=== PATIENT | female | born 1960 | race Caucasian/White ===

== ENCOUNTER 2016-08-04 10:44 | Emergency (ER) | payer BC ==
[2016-08-04 11:03] VITALS: O2SAT 97
--- NOTE | 2016-08-04 11:10 | ERPHSYRPT ---
- History of Present Illness Time Seen by Provider: 08/04/16 10:55 Source: patient Exam Limitations: no limitations Physician History: Pt. had remote hx of right(dominant) wrist Fx. 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 Now, she C/O right wrist pain x 1 week. rates as 6/10, worse with palpation and movement. Occurred: last week Method of Injury: unknown, other (repetitive use) Quality: constant, sharpness Severity of Pain-Max: moderate Severity of Pain-Current: moderate Extremities Pain Location: wrist: right Modifying Factors: Improves With: movement Associated Symptoms: none Allergies/Adverse Reactions: celecoxib [From Celebrex] Allergy (Verified 08/04/16 11:03) prednisone Allergy (Verified 08/04/16 11:03) tegaserod [From Zelnorm] Allergy (Verified 08/04/16 11:03) Home Medications: Duloxetine HCl 30 mg [Cymbalta 30 MG Capsule] 90 mg PO HS 10/25/15 [ History] Estrogens,Conjugated [Premarin] 0.625 mg PO DAILY 10/25/15 [History] Hydrocodone Bit/Acetaminophen [[place] 7.5-325 Tablet] 1 each PO Q6HPRN PRN [History] Ibuprofen [IBUPROFEN 400 MG TABLET] 1 - 2 tablet PO DAILY PRN 10/25/15 [History] Losartan Potassium 50 mg [Cozaar 50 MG] 50 mg PO DAILY 10/25/15 [History] Metformin HCl 500 mg [Glucophage 500 MG] 500 mg PO BID 10/25/15 [History] Omeprazole 20 MG [Prilosec 20 mg] 20 mg PO DAILY 10/25/15 [History] Metoprolol Succinate [Toprol Xl] 50 mg PO HS 08/04/16 [History] - Review of Systems Constitutional: No Symptoms Eyes: No Symptoms Ears, Nose, & Throat: No Symptoms Respiratory: No Symptoms Cardiac: No Symptoms Abdominal/Gastrointestinal: No Symptoms Musculoskeletal: Joint Pain, Joint Swelling Skin: No Symptoms Neurological: No Symptoms Psychological: No Symptoms Endocrine: No Symptoms Hematologic/Lymphatic: No Symptoms - Nursing Vital Signs Nursing Vital Signs: Initial Vital Signs Temperature 98.1 F Temperature Source Oral Pulse Rate 82 Respiratory Rate 18 Blood Pressure 220/120 Pain Intensity 7 - Physical Exam General Appearance: mild distress Eyes, Ears, Nose, Throat Exam: normal ENT inspection Neck Exam: normal inspection, non-tender, supple, full range of motion Cardiovascular/Respiratory Exam: chest non-tender, normal breath sounds Abdominal Exam: non-tender, soft Back Exam: normal inspection, normal range of motion Shoulder Exam: normal inspection, non-tender, no evidence of injury, normal ROM Elbow/Forearm Exam: normal inspection, non-tender, no evidence of injury, normal ROM Wrist Exam: limited ROM, soft tissue tenderness, swelling Hand Exam: normal inspection, non-tender, no evidence of injury Neuro/Tendon Exam: normal sensation, normal motor functions, normal tendon functions Mental Status Exam: alert, oriented x 3, cooperative Skin Exam: normal color, warm, dry SpO2 Interpretation: normal SpO2: 97 Oxygen Delivery: Room Air - Course Nursing assessment & vital signs reviewed: Yes - Radiology Exams Wrist X-ray Interpretation: Discussed w/ radiologist, No Fracture (Old distal radial Fx with intact anterior fixation plate/screws and radiocarpal degenerative joint space narrowing. No acute.) Ordered Tests: Active Orders 24 hr Category Date Time Status WRIST (MIN 3 VIEWS) Stat Exams 08/04/16 11:14 Completed Medication Summary Generic Name Dose Route Start Last Admin Trade Name Freq PRN Reason Stop Dose Admin Losartan Potassium 50 mg 08/05/16 11:10 08/04/16 11:16 Cozaar 50 Mg PO 08/05/16 11:11 50 mg STAT ONE Administration - Progress Progress: improved Counseled pt/family regarding: diagnosis, need for follow-up (with PCP 1 week), rad results - Departure Time of Disposition: 11:45 Departure Disposition: Home Clinical Impression: Right wrist sprain Qualifiers: Encounter type: initial encounter Qualified Code(s): S63.501A - Unspecified sprain of right wrist, initial encounter Condition: Stable Critical Care Time: No
--- NOTE | 2016-08-04 11:34 | XRAY ---
Indication: Pain following repetitive twisting. Comparison: None 3 views of the right wrist demonstrates old distal radial fracture with intact anterior fixation plate/screws and radiocarpal degenerative joint space narrowing. No other bony, articular, or soft tissue abnormalities.
[2016-08-04 11:49] VITALS: BP 160/80; PULSE 80
[2016-08-05] MEDS ORDERED: Cozaar 50 MG PO ONE (11:10)
== END 2016-08-04 11:57 | disposition home or self-care (01) ==
LOC: ED 10:44
DX: S63.501A Unspecified sprain of right wrist, initial encounter (principal)
CPT/HCPCS: 73110; 99283; L3908

== ENCOUNTER 2018-06-30 09:32 | Day surgery (SDC) | payer OTHER ==
[2018-06-30] MEDS ORDERED: Marcaine 0.5% SDV 10 ML IJ ONE (09:33)
[2018-06-30] MEDS ORDERED: Depo-Medrol 40 MG/ML IM ONE (09:33)
[2018-06-30] MEDS ORDERED: DIPRIVAN 200 MG/20 ML IV ONE (09:33)
[2018-06-30] MEDS ORDERED: Lactated Ringers 1,000 ML IV ONE (14:51)
--- NOTE | 2018-06-30 16:02 | XRAY ---
35 seconds fluoroscopy time in surgery for bilateral S-I joint injection.
--- NOTE | 2018-07-01 04:23 | XRAY ---
Exam: Bilateral sacroiliac joint therapeutic injection. Findings: 35 seconds of intraoperative fluoroscopy time was utilized. A total of 5 intraoperative C-arm images were obtained in posterior and lateral projections. Posterior needle tips are seen projected over the lower aspect of each sacroiliac joint. Correlate with therapeutic procedure.
== END 2018-06-30 12:15 | disposition home or self-care (01) ==
LOC: SDC-PAIN 09:32
PROVIDERS: ATTEND Psychiatry & Neurology Pain Medicine
DX: M46.1 Sacroiliitis, not elsewhere classified (principal)
CPT/HCPCS: 27096; 72020; 76000; 82962; J1030; J2704; G0260

== ENCOUNTER 2018-11-24 08:00 | Day surgery (SDC) | payer OTHER ==
[2018-11-24] MEDS ORDERED: Depo-Medrol 40 MG/ML IM ONE (08:01)
[2018-11-24] MEDS ORDERED: DIPRIVAN 200 MG/20 ML IV ONE (08:01)
[2018-11-24] MEDS ORDERED: Xylocaine-Mpf 2 ML IJ ONE (08:01)
[2018-11-24] MEDS ORDERED: Xylocaine-Mpf 2% 5 Ml Vial IJ ONE (08:01)
[2018-11-24] MEDS ORDERED: Ketamine HCl 50 MG/ML IV ONE (08:01)
--- NOTE | 2018-11-24 10:51 | XRAY ---
14 seconds fluoroscopy time in surgery for bilateral L4-S1 MBB.
--- NOTE | 2018-11-24 11:02 | XRAY ---
Indication: Bilateral L4-S1 MBB. Intraoperative fluoroscopy was provided for 14 seconds. Single digital spot image submitted for interpretation demonstrates posterior needle tips projecting over the expected course of the left and right L4-S1 nerve roots. Correlate with intraoperative findings/report.
[2018-11-24] MEDS ORDERED: Lactated Ringers 1,000 ML IV ONE (15:36)
== END 2018-11-24 09:52 | disposition home or self-care (01) ==
LOC: SDC-PAIN 08:00
PROVIDERS: ATTEND Psychiatry & Neurology Pain Medicine
DX: M47.817 Spondylosis without myelopathy or radiculopathy, lumbosacral region (principal); E11.9 Type 2 diabetes mellitus without complications; Z79.899 Other long term (current) drug therapy; I10 Essential (primary) hypertension; G47.30 Sleep apnea, unspecified; Z86.73 Personal history of transient ischemic attack (TIA), and cerebral infarction without residual deficits; B15.9 Hepatitis A without hepatic coma; K21.9 Gastro-esophageal reflux disease without esophagitis
CPT/HCPCS: 64493; 64494; 72020; 77002; 82962; J1030; J2704

== ENCOUNTER 2019-01-05 13:42 | Day surgery (SDC) | payer OTHER ==
[2019-01-05] MEDS ORDERED: Xylocaine 1% Vial 30 ML PF IJ ONE (13:43)
[2019-01-05] MEDS ORDERED: Marcaine 0.5% SDV 10 ML IJ ONE (13:43)
[2019-01-05] MEDS ORDERED: Depo-Medrol 40 MG/ML IM ONE (13:43)
--- NOTE | 2019-01-05 15:04 | XRAY ---
Indication: Bilateral SI joint injection. Intraoperative fluoroscopy was provided for 20 seconds. 4 digital spot images submitted for interpretation demonstrates posterior needle tips projecting over the inferior left and right SI joints. Correlate with intraoperative findings/report.
--- NOTE | 2019-01-05 16:33 | XRAY ---
20 seconds of fluoroscopy was used in surgery for bilateral SI joint injections.
== END 2019-01-05 14:51 | disposition home or self-care (01) ==
LOC: SDC-PAIN 13:42
PROVIDERS: ATTEND Psychiatry & Neurology Pain Medicine
DX: M46.1 Sacroiliitis, not elsewhere classified (principal); I10 Essential (primary) hypertension; E11.9 Type 2 diabetes mellitus without complications; G47.30 Sleep apnea, unspecified; G89.29 Other chronic pain; K21.9 Gastro-esophageal reflux disease without esophagitis; F32.9 Major depressive disorder, single episode, unspecified
CPT/HCPCS: 27096; 72202; 77002; 82962; J1030; J2001; G0260

== ENCOUNTER 2019-07-20 14:46 | Day surgery (SDC) | payer MEDICARE ==
[2019-07-20] MEDS ORDERED: Marcaine 0.5% SDV 10 ML IJ ONE (14:47)
[2019-07-20] MEDS ORDERED: Depo-Medrol 40 MG/ML IM ONE (14:47)
[2019-07-20] MEDS ORDERED: Lactated Ringers 1,000 ML IV ONE (16:00)
[2019-07-20] MEDS ORDERED: DIPRIVAN 200 MG/20 ML IV ONE (16:27)
[2019-07-20] MEDS ORDERED: Ketamine HCl 50 MG/ML ONE (16:27)
--- NOTE | 2019-07-20 16:48 | XRAY ---
Indication: Bilateral L4-S1 MBB. Intraoperative fluoroscopy was provided for 8 seconds. Single digital spot image submitted for interpretation demonstrates posterior needle tips projecting over the expected course of the left and right L4-S1 nerve roots. Correlate with intraoperative findings/report.
--- NOTE | 2019-07-20 16:48 | XRAY ---
8 seconds fluoroscopy time in surgery for bilateral L4-S1 MBB.
== END 2019-07-20 16:57 | disposition home or self-care (01) ==
LOC: SDC-PAIN 14:46
PROVIDERS: ATTEND Psychiatry & Neurology Pain Medicine
DX: M47.816 Spondylosis without myelopathy or radiculopathy, lumbar region (principal); E11.9 Type 2 diabetes mellitus without complications; I10 Essential (primary) hypertension; G47.30 Sleep apnea, unspecified; G89.29 Other chronic pain; Z79.899 Other long term (current) drug therapy
CPT/HCPCS: 64493; 64494; 72020; 77002; 82962; J1030; J2704

== ENCOUNTER 2020-01-04 08:14 | Day surgery (SDC) | payer MEDICARE ==
[2020-01-04] MEDS ORDERED: Marcaine 0.5% SDV 10 ML IJ ONE (08:15)
[2020-01-04] MEDS ORDERED: Depo-Medrol 40 MG/ML IM ONE (08:15)
[2020-01-04] MEDS ORDERED: DIPRIVAN 200 MG/20 ML IV ONE (08:31)
[2020-01-04] MEDS ORDERED: Ketamine HCl 50 MG/ML ONE (08:33)
--- NOTE | 2020-01-04 10:47 | XRAY ---
Indication: Bilateral SI joint injection. Intraoperative fluoroscopy was provided for 18 seconds. 4 digital spot images submitted for interpretation demonstrates posterior needle tip projecting over the inferior left and right SI joint. Correlate with intraoperative findings/report.
--- NOTE | 2020-01-04 11:13 | XRAY ---
18 seconds fluoroscopy time in surgery for bilateral SIO joint injections.
[2020-01-04] MEDS ORDERED: Lactated Ringers 1,000 ML IV ONE (12:34)
== END 2020-01-04 09:33 | disposition home or self-care (01) ==
LOC: SDC-PAIN 08:14
PROVIDERS: ATTEND Psychiatry & Neurology Pain Medicine
DX: M46.1 Sacroiliitis, not elsewhere classified (principal); E11.9 Type 2 diabetes mellitus without complications; I10 Essential (primary) hypertension; G47.30 Sleep apnea, unspecified; Z86.73 Personal history of transient ischemic attack (TIA), and cerebral infarction without residual deficits; G89.29 Other chronic pain; Z79.899 Other long term (current) drug therapy
CPT/HCPCS: 72202; 77002; 82962; G0260; 27096; J1030; J2704

== ENCOUNTER 2020-02-15 08:53 | Day surgery (SDC) | payer MEDICARE ==
[2020-02-15] MEDS ORDERED: Marcaine 0.5% SDV 10 ML IJ ONE (08:54)
[2020-02-15] MEDS ORDERED: Ketamine HCl 50 MG/ML ONE (09:41)
[2020-02-15] MEDS ORDERED: DIPRIVAN 200 MG/20 ML IV ONE (09:41)
--- NOTE | 2020-02-15 11:29 | XRAY ---
Indication: Right knee geniculate nerve block. Intraoperative fluoroscopy was provided for 11 seconds. 2 digital spot images of the right knee submitted for interpretation demonstrates anterior needle tips projecting medial/lateral supracondylar and medial tibial plateau. Correlate with intraoperative findings/report.
--- NOTE | 2020-02-15 11:51 | XRAY ---
11 seconds fluoroscopy time in surgery for right genicular nerve block.
[2020-02-15] MEDS ORDERED: Lactated Ringers 1,000 ML IV ONE (15:48)
== END 2020-02-15 10:07 | disposition home or self-care (01) ==
LOC: SDC-PAIN 08:53
PROVIDERS: ATTEND Psychiatry & Neurology Pain Medicine
DX: M25.562 Pain in left knee (principal); E11.9 Type 2 diabetes mellitus without complications; I10 Essential (primary) hypertension; G47.30 Sleep apnea, unspecified; G89.29 Other chronic pain; Z86.73 Personal history of transient ischemic attack (TIA), and cerebral infarction without residual deficits; F41.8 Other specified anxiety disorders; Z79.899 Other long term (current) drug therapy
CPT/HCPCS: 64454; 73560; 77002; 82962; J2704

== ENCOUNTER 2020-04-04 09:20 | Day surgery (SDC) | payer MEDICARE ==
[2020-04-04] MEDS ORDERED: BUPIVACAINE 0.5% VIAL IJ ONE (09:21)
[2020-04-04] MEDS ORDERED: Xylocaine 1% Vial 30 ML PF IJ ONE (09:21)
[2020-04-04] MEDS ORDERED: Depo-Medrol 40 MG/ML IM ONE (09:21)
[2020-04-04] MEDS ORDERED: DIPRIVAN 200 MG/20 ML IV ONE (11:09)
[2020-04-04] MEDS ORDERED: Ketamine HCl 50 MG/ML ONE (11:09)
--- NOTE | 2020-04-04 12:25 | XRAY ---
17 seconds fluoroscopy time in surgery for right genicular nerve ablation.
--- NOTE | 2020-04-04 12:25 | XRAY ---
Indication: Right knee genicular nerve ablation. Intraoperative fluoroscopy was provided for 17 seconds. 2 digital spot images of the right knee submitted for interpretation demonstrates anterior needle tips projecting medial/lateral supracondylar and medial tibial plateau. Correlate with intraoperative findings/report.
[2020-04-04] MEDS ORDERED: Lactated Ringers 1,000 ML IV ONE (15:30)
== END 2020-04-04 11:45 | disposition home or self-care (01) ==
LOC: SDC-PAIN 09:20
PROVIDERS: ATTEND Psychiatry & Neurology Pain Medicine
DX: M17.11 Unilateral primary osteoarthritis, right knee (principal); E11.9 Type 2 diabetes mellitus without complications; I10 Essential (primary) hypertension; G47.30 Sleep apnea, unspecified; Z86.73 Personal history of transient ischemic attack (TIA), and cerebral infarction without residual deficits; Z79.899 Other long term (current) drug therapy
CPT/HCPCS: 64624; 73560; 77002; 82962; J1030; J2001; J2704

== ENCOUNTER 2020-07-04 07:46 | Day surgery (SDC) | payer MEDICARE ==
[2020-07-04] MEDS ORDERED: Depo-Medrol 40 MG/ML IM ONE (07:47)
[2020-07-04] MEDS ORDERED: BUPIVACAINE 0.5% VIAL IJ ONE (07:47)
[2020-07-04] MEDS ORDERED: Ketamine HCl 50 MG/ML ONE (09:51)
[2020-07-04] MEDS ORDERED: DIPRIVAN 200 MG/20 ML IV ONE (09:51)
--- NOTE | 2020-07-04 10:34 | XRAY ---
Indication: Bilateral L4-S1 MBB. Intraoperative fluoroscopy was provided for 16 seconds. Single digital spot image submitted for interpretation demonstrates posterior needle tips projecting over the expected left and right L4-S1 nerve roots. Correlate with intraoperative findings/report.
--- NOTE | 2020-07-04 10:38 | XRAY ---
16 seconds fluoroscopy time in surgery for bilateral L4-S1 MBB.
[2020-07-04] MEDS ORDERED: Lactated Ringers 1,000 ML IV ONE (16:05)
== END 2020-07-04 10:19 | disposition home or self-care (01) ==
LOC: SDC-PAIN 07:46
PROVIDERS: ATTEND Psychiatry & Neurology Pain Medicine
DX: M47.816 Spondylosis without myelopathy or radiculopathy, lumbar region (principal); I10 Essential (primary) hypertension; E11.9 Type 2 diabetes mellitus without complications; G47.30 Sleep apnea, unspecified; Z86.73 Personal history of transient ischemic attack (TIA), and cerebral infarction without residual deficits; Z79.899 Other long term (current) drug therapy
CPT/HCPCS: 64493; 64494; 72020; 77002; 82947; 82962; J1030; J2704

== ENCOUNTER 2020-12-19 08:30 | Day surgery (SDC) | payer MEDICARE ==
[2020-12-19] MEDS ORDERED: Depo-Medrol 40 MG/ML IM ONE (08:31)
[2020-12-19] MEDS ORDERED: BUPIVACAINE 0.5% VIAL IJ ONE (08:31)
[2020-12-19] MEDS ORDERED: DIPRIVAN 200 MG/20 ML IV ONE (09:37)
--- NOTE | 2020-12-19 11:01 | XRAY ---
15 seconds fluoroscopy time in surgery for bilateral SI joint injections.
--- NOTE | 2020-12-19 11:10 | XRAY ---
Indication: Bilateral SI joint injection. Intraoperative fluoroscopy provided for 15 seconds. 4 digital spot images submitted for interpretation demonstrates posterior needle tip projecting over the inferior left and right SI joint. Correlate with intraoperative findings/report.
[2020-12-19] MEDS ORDERED: Lactated Ringers 1,000 ML IV ONE (15:27)
== END 2020-12-19 10:02 | disposition home or self-care (01) ==
LOC: SDC-PAIN 08:30
PROVIDERS: ATTEND Psychiatry & Neurology Pain Medicine
DX: M46.1 Sacroiliitis, not elsewhere classified (principal); I10 Essential (primary) hypertension; E11.9 Type 2 diabetes mellitus without complications; G47.30 Sleep apnea, unspecified; Z79.899 Other long term (current) drug therapy
CPT/HCPCS: 27096; 72202; 77002; 82947; J1030; J2704; G0260

== ENCOUNTER 2021-02-20 18:03 | Day surgery (SDC) | payer MEDICARE ==
[2021-02-20] MEDS ORDERED: Xylocaine 1% Vial 30 ML PF IJ ONE (18:04)
[2021-02-20] MEDS ORDERED: Depo-Medrol 40 MG/ML IM ONE (18:04)
[2021-02-20] MEDS ORDERED: BUPIVACAINE 0.5% VIAL IJ ONE (18:04)
--- NOTE | 2021-02-20 20:28 | XRAY ---
Indication: Bilateral greater trochanter bursa injections. Intraoperative fluoroscopy provided for 23 seconds. 2 digital spot image submitted for interpretation demonstrates needle tip projecting just lateral to the left and right greater trochanters. Small amount of contrast injected for both needle tip placement. Correlate with intraoperative findings/report.
--- NOTE | 2021-02-21 08:33 | XRAY ---
23 seconds fluoroscopy time in surgery for injections of the greater trochanters of both hips.
== END 2021-02-20 19:50 | disposition home or self-care (01) ==
LOC: SDC-PAIN 18:03
PROVIDERS: ATTEND Psychiatry & Neurology Pain Medicine
DX: M70.62 Trochanteric bursitis, left hip (principal); M70.61 Trochanteric bursitis, right hip; E11.9 Type 2 diabetes mellitus without complications; Z79.899 Other long term (current) drug therapy
CPT/HCPCS: 20610; 73521; 77002; 82947; J1030; J2001; Q9966

== ENCOUNTER 2021-06-05 08:58 | Day surgery (SDC) | payer MEDICARE ==
[2021-06-05] MEDS ORDERED: BUPIVACAINE 0.5% VIAL IJ ONE (08:59)
[2021-06-05] MEDS ORDERED: Depo-Medrol 40 MG/ML IM ONE (08:59)
[2021-06-05] MEDS ORDERED: Versed 2 MG/2 ML Injection ONE (09:58)
[2021-06-05] MEDS ORDERED: SUBLIMAZE 100 MCG/2 ML ONE (10:19)
[2021-06-05] MEDS ORDERED: DIPRIVAN 200 MG/20 ML IV ONE (10:40)
--- NOTE | 2021-06-05 12:23 | XRAY ---
23 seconds of fluoroscopy was used in surgery for a bilateral SI joint injections.
[2021-06-05] MEDS ORDERED: Lactated Ringers 1,000 ML IV ONE (12:27)
--- NOTE | 2021-06-05 12:33 | XRAY ---
Indication: Bilateral SI joint injection. Intraoperative fluoroscopy provided for 23 seconds. 4 digital spot images submitted for interpretation demonstrates posterior needle tip projecting over the inferior left and right SI joint. Correlate with intraoperative findings/report.
== END 2021-06-05 11:08 | disposition home or self-care (01) ==
LOC: SDC-PAIN 08:58
PROVIDERS: ATTEND Psychiatry & Neurology Pain Medicine
DX: M46.1 Sacroiliitis, not elsewhere classified (principal); E11.9 Type 2 diabetes mellitus without complications; Z79.899 Other long term (current) drug therapy
CPT/HCPCS: 27096; 72202; 77002; 82947; G0260; J1030; J2250; J2704; J3010

== ENCOUNTER 2021-07-10 07:49 | Day surgery (SDC) | payer MEDICARE ==
[2021-07-10] MEDS ORDERED: Depo-Medrol 40 MG/ML IM ONE (07:50)
[2021-07-10] MEDS ORDERED: Xylocaine 1% Vial 30 ML PF IJ ONE (07:50)
[2021-07-10] MEDS ORDERED: BUPIVACAINE 0.5% VIAL IJ ONE (07:50)
[2021-07-10] MEDS ORDERED: Versed 2 MG/2 ML Injection ONE (08:35)
[2021-07-10] MEDS ORDERED: Lactated Ringers 1,000 ML IV ONE (08:53)
[2021-07-10] MEDS ORDERED: DIPRIVAN 200 MG/20 ML IV ONE (09:15)
--- NOTE | 2021-07-10 10:47 | XRAY ---
Indication: Bilateral hip injection. Intraoperative fluoroscopy provided for 1 minute 10 seconds. 2 digital spot image submitted for interpretation demonstrates needle tip projecting just lateral to the left and right femur necks. Small amount of contrast injected for both needle tip placement. Correlate with intraoperative findings/report.
--- NOTE | 2021-07-10 12:22 | XRAY ---
1 minute and 10 seconds fluoroscopy time in surgery for injections of both intra-articular joint spaces of both hips.
== END 2021-07-10 09:49 | disposition home or self-care (01) ==
LOC: SDC-PAIN 07:49
PROVIDERS: ATTEND Psychiatry & Neurology Pain Medicine
DX: M16.0 Bilateral primary osteoarthritis of hip (principal); E11.9 Type 2 diabetes mellitus without complications; I10 Essential (primary) hypertension; Z79.899 Other long term (current) drug therapy
CPT/HCPCS: 20610; 73521; 77002; 82947; J1030; J2001; J2250; J2704; Q9966

== ENCOUNTER 2021-08-14 08:03 | Day surgery (SDC) | payer MEDICARE ==
[~2021-08-14 08:03] MED LIST: DIPRIVAN 200 MG/20 ML IV ONE
[2021-08-14] MEDS ORDERED: Xylocaine 1% Vial 30 ML PF IJ ONE (08:04)
[2021-08-14] MEDS ORDERED: Depo-Medrol 40 MG/ML IM ONE (08:04)
[2021-08-14] MEDS ORDERED: Sodium Chloride 0.9% 10 ML FLUSH Syringe IJ ONE (08:04)
[2021-08-14] MEDS ORDERED: DIPRIVAN 200 MG/20 ML IV ONE (09:38)
[2021-08-14] MEDS ORDERED: Lactated Ringers 1,000 ML IV ONE (10:02)
--- NOTE | 2021-08-14 11:07 | XRAY ---
Indication: Lumbar HOMER. Intraoperative fluoroscopy provided for 20 seconds. Single lateral digital spot image submitted for interpretation demonstrates posterior needle tip projecting posterior to L4-L5 interspace. Small amount of contrast injected for needle tip placement. Correlate with intraoperative findings/report.
--- NOTE | 2021-08-14 12:13 | XRAY ---
20 seconds of fluoroscopy was used in surgery for a lumbar HOMER.
== END 2021-08-14 10:05 | disposition home or self-care (01) ==
LOC: SDC-PAIN 08:03
PROVIDERS: ATTEND Psychiatry & Neurology Pain Medicine
DX: M54.16 Radiculopathy, lumbar region (principal); I10 Essential (primary) hypertension; Z79.899 Other long term (current) drug therapy
CPT/HCPCS: 62323; 72100; 77003; 82947; J1030; J2001; J2704; Q9966

== ENCOUNTER 2022-03-19 08:14 | Day surgery (SDC) | payer MEDICARE ==
[2022-03-19] MEDS ORDERED: Depo-Medrol 40 MG/ML IM ONE (08:15)
[2022-03-19] MEDS ORDERED: XYLOCAINE-MPF 1% 5ML SDV IJ ONE (08:15)
[2022-03-19] MEDS ORDERED: Marcaine Mpf 0.5% Vial 30 Ml IJ ONE (08:15)
[2022-03-19] MEDS ORDERED: Versed 2 MG/2 ML Injection ONE (09:05)
[2022-03-19] MEDS ORDERED: Lactated Ringers 1,000 ML IV ONE (10:16)
--- NOTE | 2022-03-19 14:00 | XRAY ---
Indication: Right L4-S1 RFA. Intraoperative fluoroscopy provided for 24 seconds. 3 digital spot image submitted for interpretation demonstrates posterior needle tips projecting over the expected right L4-S1 nerve roots. Correlate with intraoperative findings/report.
--- NOTE | 2022-03-19 16:47 | XRAY ---
24 seconds fluoroscopy time in surgery for right L4-S1 RFA.
== END 2022-03-19 10:15 | disposition home or self-care (01) ==
LOC: SDC-PAIN 08:14
PROVIDERS: ATTEND Psychiatry & Neurology Pain Medicine
DX: M47.816 Spondylosis without myelopathy or radiculopathy, lumbar region (principal); E11.9 Type 2 diabetes mellitus without complications; Z79.899 Other long term (current) drug therapy
CPT/HCPCS: 64635; 64636; 72100; 77002; 82947; J1030; J2250

== ENCOUNTER 2022-04-30 07:56 | Day surgery (SDC) | payer MEDICARE ==
[2022-04-30] MEDS ORDERED: Depo-Medrol 40 MG/ML IM ONE (07:57)
[2022-04-30] MEDS ORDERED: Sodium Chloride 0.9(Preservative Free) 10 ML IJ ONE (07:57)
[2022-04-30] MEDS ORDERED: DIPRIVAN 200 MG/20 ML IV ONE (09:20)
[2022-04-30] MEDS ORDERED: Lactated Ringers 1,000 ML IV ONE (10:11)
--- NOTE | 2022-04-30 19:22 | XRAY ---
Indication: Right L3-L5 transforaminal HOMER. Intraoperative fluoroscopy provided for 1 minute 2 seconds. 5 digital spot image submitted for interpretation demonstrates posterior needle tips projecting over the expected right L3 and L4 nerve roots. Small amount of contrast injected for needle tip placement. Correlate with intraoperative findings/report.
--- NOTE | 2022-04-30 19:33 | XRAY ---
One minute and 2 seconds of fluoroscopy was used in surgery for a right L3-L5 transforaminal HOMER.
== END 2022-04-30 09:55 | disposition home or self-care (01) ==
LOC: SDC-PAIN 07:56
PROVIDERS: ATTEND Psychiatry & Neurology Pain Medicine
DX: M54.16 Radiculopathy, lumbar region (principal); E11.9 Type 2 diabetes mellitus without complications; Z79.899 Other long term (current) drug therapy
CPT/HCPCS: 64483; 64484; 72100; 77003; 82947; J1030; J2704; Q9966

== ENCOUNTER 2022-07-09 08:30 | Day surgery (SDC) | payer MEDICARE ==
[2022-07-09] MEDS ORDERED: BUPIVACAINE 0.5% VIAL IJ ONE (08:31)
[2022-07-09] MEDS ORDERED: Depo-Medrol 40 MG/ML IM ONE (08:31)
[2022-07-09] MEDS ORDERED: XYLOCAINE-MPF 1% 5ML SDV IJ ONE (08:31)
[2022-07-09] MEDS ORDERED: Versed 2 MG/2 ML Injection ONE (09:34)
[2022-07-09] MEDS ORDERED: DIPRIVAN 200 MG/20 ML IV ONE (10:00)
[2022-07-09] MEDS ORDERED: Lactated Ringers 1,000 ML IV ONE (10:51)
--- NOTE | 2022-07-09 11:04 | XRAY ---
Indication: Left L4-S1 RFA. Intraoperative fluoroscopy provided for 26 seconds. 3 digital spot image submitted for interpretation demonstrates posterior needle tips projecting over the expected left L4-S1 nerve roots. Correlate with intraoperative findings/report.
--- NOTE | 2022-07-09 11:58 | XRAY ---
26 seconds of fluoroscopy was used in surgery for a left L4-S1 RFA.
== END 2022-07-09 10:32 | disposition home or self-care (01) ==
LOC: SDC-PAIN 08:30
PROVIDERS: ATTEND Psychiatry & Neurology Pain Medicine
DX: M47.816 Spondylosis without myelopathy or radiculopathy, lumbar region (principal); E11.9 Type 2 diabetes mellitus without complications; Z79.899 Other long term (current) drug therapy
CPT/HCPCS: 64635; 64636; 72100; 77002; 82947; J1030; J2250; J2704

== ENCOUNTER 2022-08-20 08:50 | Day surgery (SDC) | payer MEDICARE ==
[2022-08-20] MEDS ORDERED: LIDOCAINE HCL 1% 50 MG/5 ML VL PF IJ ONE (08:51)
[2022-08-20] MEDS ORDERED: Decadron 4 MG INJ IV ONE (08:51)
[2022-08-20] MEDS ORDERED: BUPIVACAINE 0.5% VIAL IJ ONE (08:51)
[2022-08-20] MEDS ORDERED: Depo-Medrol 40 MG/ML IM ONE (08:51)
[2022-08-20 08:58] LABS: POCT GLUCOSE 134 mg/dL (74 to 106)
[2022-08-20] MEDS ORDERED: Versed 2 MG/2 ML Injection ONE (09:22)
[2022-08-20] MEDS ORDERED: DIPRIVAN 200 MG/20 ML IV ONE (10:09)
--- NOTE | 2022-08-20 11:41 | XRAY ---
Indication: Right SI joint and right piriformis injection. Intraoperative fluoroscopy provided for 22 seconds. 4 digital spot image submitted for interpretation demonstrates posterior needle tip projecting over the right SI joint. Second needle tip projects over the right piriformis muscle with small amount of contrast injected for needle tip placement. Correlate with intraoperative findings/report.
--- NOTE | 2022-08-20 11:47 | XRAY ---
22 seconds of fluoroscopy was used in surgery for a right sacroiliac joint and right piriformis injection.
[2022-08-20] MEDS ORDERED: Lactated Ringers 1,000 ML IV ONE (13:24)
== END 2022-08-20 10:38 | disposition home or self-care (01) ==
LOC: SDC-PAIN 08:50
PROVIDERS: ATTEND Psychiatry & Neurology Pain Medicine
DX: M46.1 Sacroiliitis, not elsewhere classified (principal); M79.18 Myalgia, other site; E11.9 Type 2 diabetes mellitus without complications; Z79.899 Other long term (current) drug therapy
CPT/HCPCS: 20552; 27096; 72170; 77002; 82947; J1030; J1100; J2001; J2250; J2704; Q9966; G0260

== ENCOUNTER 2022-10-01 10:51 | Day surgery (SDC) | payer MEDICARE ==
[2022-10-01] MEDS ORDERED: Depo-Medrol 40 MG/ML IM ONE (10:52)
[2022-10-01] MEDS ORDERED: LIDOCAINE HCL 1% 50 MG/5 ML VL PF IJ ONE (10:52)
[2022-10-01] MEDS ORDERED: BUPIVACAINE 0.5% VIAL IJ ONE (10:52)
[2022-10-01] MEDS ORDERED: DIPRIVAN 200 MG/20 ML IV ONE ×2 (12:50→13:01)
[2022-10-01] MEDS ORDERED: Lactated Ringers 1,000 ML IV ONE (14:27)
--- NOTE | 2022-10-01 16:52 | XRAY ---
Indication: Right SI joint RFA. Intraoperative fluoroscopy provided for 23 seconds. 4 digital spot image submitted for interpretation demonstrates 4 posterior needle tips projecting medial to the right SI joint. Correlate with intraoperative findings/report.
--- NOTE | 2022-10-02 08:39 | XRAY ---
23 seconds of fluoroscopy was used in surgery for a right sacroiliac joint injection.
== END 2022-10-01 13:25 | disposition home or self-care (01) ==
LOC: SDC-PAIN 10:51
PROVIDERS: ATTEND Psychiatry & Neurology Pain Medicine
DX: M47.816 Spondylosis without myelopathy or radiculopathy, lumbar region (principal); Z79.899 Other long term (current) drug therapy
CPT/HCPCS: 64625; 72170; 77002; 82947; J1030; J2001; J2704

== ENCOUNTER 2023-01-14 07:52 | Day surgery (SDC) | payer MEDICARE ==
[2023-01-14] MEDS ORDERED: Depo-Medrol 40 MG/ML IM ONE (07:53)
[2023-01-14] MEDS ORDERED: LIDOCAINE HCL 1% 50 MG/5 ML VL PF IJ ONE (07:53)
[2023-01-14] MEDS ORDERED: Sodium Chloride 0.9(Preservative Free) 10 ML IJ ONE (07:53)
[2023-01-14] MEDS ORDERED: TRANDATE 100 MG/20 ML MDV FOR DRIP IV ONE (07:53)
[2023-01-14] MEDS ORDERED: DIPRIVAN 200 MG/20 ML IV ONE (09:44)
[2023-01-14] MEDS ORDERED: Xylocaine-Mpf 2% 5 Ml Vial ONE (10:13)
--- NOTE | 2023-01-14 11:46 | XRAY ---
Indication: Lumbar HOMER. Intraoperative fluoroscopy provided for 16 seconds. 2 digital spot image submitted for interpretation demonstrates posterior needle tip projecting posterior to lumbosacral junction interspace. Small amount of contrast injected for needle tip placement. Correlate with intraoperative findings/report.
--- NOTE | 2023-01-14 13:36 | XRAY ---
16 seconds of fluoroscopy was used in surgery for a lumbar HOMER.
[2023-01-14] MEDS ORDERED: Lactated Ringers 1,000 ML IV ONE (13:53)
== END 2023-01-14 11:05 | disposition home or self-care (01) ==
LOC: SDC-PAIN 07:52
PROVIDERS: ATTEND Psychiatry & Neurology Pain Medicine
DX: M54.16 Radiculopathy, lumbar region (principal); E11.9 Type 2 diabetes mellitus without complications; Z79.899 Other long term (current) drug therapy
CPT/HCPCS: 62323; 72100; 77003; 82947; J1030; J2001; J2704; Q9966

== ENCOUNTER 2023-04-01 06:53 | Day surgery (SDC) | payer MEDICARE | END 2023-04-01 07:10 | disposition home or self-care (01) | LOC: SDC-PAIN 06:53 | PROVIDERS: ATTEND Psychiatry & Neurology Pain Medicine | DX: Z53.8 Procedure and treatment not carried out for other reasons (principal); E11.9 Type 2 diabetes mellitus without complications | CPT/HCPCS: 82947 ==

== ENCOUNTER 2023-07-08 08:55 | Emergency (ER) | payer MEDICARE ==
[~2023-07-08 08:55] MED LIST changes: -BUPIVACAINE 0.5% VIAL IJ ONE; -DIPRIVAN 200 MG/20 ML IV ONE; -Depo-Medrol 40 MG/ML IM ONE; -Lactated Ringers 1,000 ML IV ONE; +TRANDATE 20 MG/4 ML SYRINGE IV ONE; -XYLOCAINE-MPF 1% 5ML SDV IJ ONE
--- NOTE | 2023-07-08 08:59 | ERPHSYRPT ---
- History of Present Illness Time Seen by Provider: 07/08/23 08:59 Source: patient Exam Limitations: no limitations Physician History: This is an obese 63-year-old white female patient who was at the pain clinic and about to receive an injection to help relieve her bilateral hip pain. She was found to have significantly elevated blood pressure. Dr. Garcia ordered the patient to have labetalol intravenously prior to her arriving to the emergency department. Patient has a history of hypertension, obesity, gastroesophageal reflux disease, chronic pain issues, fibromyalgia and diabetes. Patient ordinarily takes her blood pressure medication of losartan and metoprolol in the evenings. At 530 this morning patient did take her hydrocodone pain medicine. Other than the pain in her hips, patient was asymptomatic. She does not have a headache. She has no chest pain. She is not short of breath. She had no visual changes. Patient's initial blood pressure reading on arrival to the emergency department shows a blood pressure of 230/108. Repeat, second blood pressure reading was 162/104 Timing/Duration: today Severity: mild Associated Symptoms: denies symptoms Allergies/Adverse Reactions: celecoxib [From Celebrex] Allergy (Verified 07/08/23 09:05) prednisone Allergy (Verified 07/08/23 09:05) tegaserod [From Zelnorm] Allergy (Verified 07/08/23 09:05) Home Medications: Duloxetine HCl [Cymbalta] 1 cap PO HS 07/08/23 [History] Gabapentin [Neurontin ] 1 cap PO HS 07/08/23 [History] Losartan Potassium [Cozaar] 1 tab PO HS 07/08/23 [History] Metoprolol Succinate 100 mg [Toprol Xl 100 MG] 1 tab PO HS 07/08/23 [History] Oxycodone HCl/Acetaminophen [Oxycodone-Acetaminophen 5-325] 1 tab PO TID PRN 07/08/23 [History] Semaglutide [Ozempic] 1 mg SQ WEEKLY 07/08/23 [History] Hx Tetanus, Diphtheria Vaccination/Date Given: Yes (up to date) Hx Influenza Vaccination/Date Given: Yes Hx Pneumococcal Vaccination/Date Given: No Travel Risk - International Travel Have you traveled outside of the country in past 3 weeks: No - Coronavirus Screening Are you exhibiting any of the following symptoms?: No Close contact with a COVID-19 positive Pt in past 14-21 Days: No - Review of Systems Constitutional: No Symptoms Eyes: No Symptoms Ears, Nose, & Throat: No Symptoms Respiratory: No Symptoms Cardiac: No Symptoms Abdominal/Gastrointestinal: No Symptoms Genitourinary Symptoms: No Symptoms Musculoskeletal: Joint Pain (Chronic bilateral hip pain) Skin: No Symptoms Neurological: No Symptoms Psychological: No Symptoms Endocrine: No Symptoms Hematologic/Lymphatic: No Symptoms Immunological/Allergic: No Symptoms All Other Systems: Reviewed and Negative - Past Medical History Pertinent Past Medical History: Yes Cardiac History: Hypertension Endocrine Medical History: Diabetes Type II Musculoskeletal History: Fibromyalgia - Past Surgical History Past Surgical History: Yes Gastrointestinal: Cholecystectomy Musculoskeletal: Orthopedic Surgery Female Surgical History: Hysterectomy, Section Other Surgical History: bladder - Social History Smoking Status: Current every day smoker How long have you smoked: 40 Exposure to second hand smoke: No Drug Use: none Patient Lives Alone: No - Nursing Vital Signs Nursing Vital Signs: Initial Vital Signs Temperature 97.6 F 07/08/23 08:55 Pulse Rate 70 07/08/23 08:55 Respiratory Rate 16 07/08/23 08:55 Blood Pressure 230/108 07/08/23 08:55 O2 Sat by Pulse Oximetry 95 07/08/23 08:55 Pain Scale Pain Intensity 8 - Course Nursing assessment & vital signs reviewed: Yes EKG Interpreted by Me: RATE (69), NORMAL AXIS, NORMAL QRS, NORMAL ST-T, Other (No acute ischemic changes on today's twelve-lead EKG. There is borderline prolonged OH interval.) Ordered Tests: Active Orders 24 hr Category Date Time Status [employer] STAT Care 07/08/23 09:15 Active EKG-ER Only STAT Care 07/08/23 09:15 Active IV Insertion STAT Care 07/08/23 09:15 Active NPO (ED) STAT Care 07/08/23 09:15 Active Pulse Oximetry (ED) STAT Care 07/08/23 09:15 Active HEAD WITHOUT CONTRAST [CT] Stat Exams 07/08/23 09:22 Completed CBC W DIFF Stat Lab 07/08/23 09:31 Completed CMP Stat Lab 07/08/23 09:31 Completed POCT GLUCOSE Stat Lab 07/08/23 06:49 Completed UA W/RFX UR CULTURE Stat Lab 07/08/23 10:49 Completed Medication Summary Discontinued Medications Generic Name Dose Route Start Last Admin Trade Name Freq PRN Reason Stop Dose Admin Hydromorphone HCl 0.5 mg 07/08/23 09:15 07/08/23 09:26 Hydromorphone 1 Mg/1ml Inj IV 07/08/23 09:16 0.5 mg STAT ONE Administration Hydromorphone HCl Confirm 07/08/23 09:20 Hydromorphone 1 Mg/1ml Inj Administered 07/08/23 09:21 Dose 1 mg .ROUTE .STK-MED ONE Hydromorphone HCl 0.5 mg 07/08/23 10:54 07/08/23 11:02 Hydromorphone 1 Mg/1ml Inj IV 07/08/23 10:55 0.5 mg STAT ONE Administration Hydromorphone HCl Confirm 07/08/23 11:00 Hydromorphone 1 Mg/1ml Inj Administered 07/08/23 11:01 Dose 1 mg .ROUTE .STK-MED ONE Labetalol HCl 5 mg 07/08/23 07:30 07/08/23 09:14 Labetalol Hcl 20 Mg/4 Ml Disp.Syringe IV 07/08/23 07:31 Not Given NOW ONE Labetalol HCl 5 mg 07/08/23 10:53 07/08/23 11:03 Labetalol Hcl 20 Mg/4 Ml Disp.Syringe IV 07/08/23 10:54 5 mg STAT ONE Administration Labetalol HCl Confirm 07/08/23 11:01 Labetalol Hcl 20 Mg/4 Ml Disp.Syringe Administered 07/08/23 11:02 Dose 20 mg IV .STK-MED ONE Ondansetron HCl 4 mg 07/08/23 09:15 07/08/23 09:23 Ondansetron Hcl 4 Mg/2 Ml Vial IV 07/08/23 09:16 4 mg STAT ONE Administration Ondansetron HCl Confirm 07/08/23 09:19 Ondansetron Hcl 4 Mg/2 Ml Vial Administered 07/08/23 09:20 Dose 4 mg .ROUTE .STK-MED ONE Lab/Rad Data: Laboratory Result Diagrams 07/08/23 09:31 07/08/23 09:31 Laboratory Results 07/08/23 07/08/23 07/08/23 Range/Units 10:49 09:31 09:31 WBC 8.1 (4.0-10.5) x10^3/uL RBC 4.89 (4.1-5.4) x10^6/uL Hgb 15.2 (12.0-16.0) g/dL Hct 44.5 (35-47) % MCV 91.0 (78-100) fL MCH 31.1 (26-32) pg MCHC 34.2 (32-36) g/dL RDW 12.3 (11.5-14.0) % Plt Count 233 (150-450) x10^3/uL MPV 10.4 (7.5-11.0) fL Gran % 53.0 (36.0-66.0) % Immature Gran % (Auto) 0.2 (0.00-0.4) % Nucleat RBC Rel Count 0.0 (0.00-0.1) % Eos # (Auto) 0.42 (0-0.5) x10^3/uL Immature Gran # (Auto) 0.02 (0.00-0.03) x10^3u/L Absolute Lymphs (auto) 2.80 (1.0-4.6) x10^3/uL Absolute Monos (auto) 0.48 (0.0-1.3) x10^3/uL Absolute Nucleated RBC 0.00 (0.00-0.01) x10^3u/L Lymphocytes % 34.7 (24.0-44.0) % Monocytes % 6.0 (0.0-12.0) % Eosinophils % 5.2 H (0.00-5.0) % Basophils % 0.9 (0.0-0.4) % Absolute Granulocytes 4.27 (1.4-6.9) x10^3/uL Basophils # 0.07 (0-0.4) x10^3/uL Sodium 135 L (137-145) mmol/L Potassium 3.7 (3.5-5.1) mmol/L Chloride 106 (98-107) mmol/L Carbon Dioxide 19 L (22-30) mmol/L Anion Gap 14.0 (5-15) MEQ/L BUN 13 (7-17) mg/dL Creatinine 0.59 (0.52-1.04) mg/dL Estimated GFR 101.2 ML/MIN Glucose 157 H (74-106) mg/dL POC Glucometer (74 to 106) mg/dL Calcium 9.1 (8.4-10.2) mg/dL Total Bilirubin 0.90 (0.2-1.3) mg/dL AST 34 (14-36) U/L ALT 38 H (0-35) U/L Alkaline Phosphatase 94 (38-126) U/L Serum Total Protein 7.0 (6.3-8.2) g/dL Albumin 3.9 (3.5-5.0) g/dL Urine Color Yellow (Yellow) Urine Appearance Cloudy A (Clear) Urine pH 5.5 (4.6-8.0) Ur Specific [place] 1.025 (1.005-1.030) Urine Protein Trace A (Negative) Urine Glucose (UA) Negative (Negative) mg/dL Urine Ketones Negative (Negative) Urine Blood Negative (Negative) Urine Nitrite Negative (Negative) Urine Bilirubin Negative (Negative) Urine Urobilinogen 0.2 (0.2) mg/dL Ur Leukocyte Esterase Negative (Negative) U Hyaline Cast (Auto) NONE SEEN (0-2) /LPF Urine Microscopic RBC 0-2 (0-5) /HPF Urine Microscopic WBC 0-2 (0-5) /HPF Ur Epithelial Cells Few (None Seen) /HPF Urine Bacteria None Seen (None Seen) /HPF Urine Culture Reflexed NO (NO) 07/08/23 Range/Units 06:49 WBC (4.0-10.5) x10^3/uL RBC (4.1-5.4) x10^6/uL Hgb (12.0-16.0) g/dL Hct (35-47) % MCV (78-100) fL MCH (26-32) pg MCHC (32-36) g/dL RDW (11.5-14.0) % Plt Count (150-450) x10^3/uL MPV (7.5-11.0) fL Gran % (36.0-66.0) % Immature Gran % (Auto) (0.00-0.4) % Nucleat RBC Rel Count (0.00-0.1) % Eos # (Auto) (0-0.5) x10^3/uL Immature Gran # (Auto) (0.00-0.03) x10^3u/L Absolute Lymphs (auto) (1.0-4.6) x10^3/uL Absolute Monos (auto) (0.0-1.3) x10^3/uL Absolute Nucleated RBC (0.00-0.01) x10^3u/L Lymphocytes % (24.0-44.0) % Monocytes % (0.0-12.0) % Eosinophils % (0.00-5.0) % Basophils % (0.0-0.4) % Absolute Granulocytes (1.4-6.9) x10^3/uL Basophils # (0-0.4) x10^3/uL Sodium (137-145) mmol/L Potassium (3.5-5.1) mmol/L Chloride (98-107) mmol/L Carbon Dioxide (22-30) mmol/L Anion Gap (5-15) MEQ/L BUN (7-17) mg/dL Creatinine (0.52-1.04) mg/dL Estimated GFR ML/MIN Glucose (74-106) mg/dL POC Glucometer 160 H (74 to 106) mg/dL Calcium (8.4-10.2) mg/dL Total Bilirubin (0.2-1.3) mg/dL AST (14-36) U/L ALT (0-35) U/L Alkaline Phosphatase (38-126) U/L Serum Total Protein (6.3-8.2) g/dL Albumin (3.5-5.0) g/dL Urine Color (Yellow) Urine Appearance (Clear) Urine pH (4.6-8.0) Ur Specific [place] (1.005-1.030) Urine Protein (Negative) Urine Glucose (UA) (Negative) mg/dL Urine Ketones (Negative) Urine Blood (Negative) Urine Nitrite (Negative) Urine Bilirubin (Negative) Urine Urobilinogen (0.2) mg/dL Ur Leukocyte Esterase (Negative) U Hyaline Cast (Auto) (0-2) /LPF Urine Microscopic RBC (0-5) /HPF Urine Microscopic WBC (0-5) /HPF Ur Epithelial Cells (None Seen) /HPF Urine Bacteria (None Seen) /HPF Urine Culture Reflexed (NO) - Progress Progress: improved, re-examined Progress Note: 07/08/23 09:12 This patient's medical issue is 1 of moderate complexity. Level complex in the workup performed based on review of the patient's past medical history, or review the patient's medication list, review of the patient's drug allergy list, history of present illness and physical findings on examination. Workup in this patient includes placement of intravenous line, twelve-lead EKG, CBC, CMP, urinalysis, troponin level. I do not think it is necessary for the patient to receive a CT scan of the head as she is asymptomatic. We will provide her with intravenous Zofran and intravenous pain medicine. Patient did already receive a dose of labetalol. We will wait to see what effect the labetalol and the pain medicine has on the patient's blood pressure. 07/08/23 09:19 The original plan was to not do a CT scan of the head because she was asymptomatic. However, her blood pressure spiked up and the patient has not received labetalol as was documented. In addition, the patient states she has had a stroke in the past. Therefore I will go ahead and order a CT scan of the head. 07/08/23 11:23 I interpreted the patient's laboratory data results. There is no evidence of any acute, emergent laboratory data results. CT scan of the head without contrast was interpreted by the radiologist. There is a remote (old) infarct of the right external capsule. No other acute intr acranial findings present. Counseled pt/family regarding: lab results, diagnosis, need for follow-up Medical Desision Making - Independent Historian Additional History obtained from: Spouse - Diagnostic Testing Diagnostic test were ordered, analyzed, and reviewed by me: Yes Radiological Interpretation: Reviewed by me, Teleradiologist Report - Risk of complications Low Risk: Low risk of morbidity from additional dx testing or treatment - Departure Departure Disposition: Home Clinical Impression: Hypertension Condition: Stable Critical Care Time: No Referrals: ANGELIQUE TIJERINA, DO [Primary Care Provider] - Follow up/PCP as directed Additional Instructions: Call your prescribing provider today, 07/08/2023, to make arrangements for follow-up appointment to discuss hypertension management. Keep a daily log (morning noon and night) of your blood pressure readings over the next 3 to 4 days. Provide this log to your prescribing provider at the time of your follow- up appointment. Call your pain management provider today, 07/08/2023 to discuss other options for pain control until you are able to have the rescheduled injections. Continue your outpatient medication as prescribed.
[2023-07-08 09:03] VITALS: TEMP 97.6
[2023-07-08] MEDS ORDERED: Hydromorphone 1 mg/ml Injection IV ONE ×2 (09:15→10:54)
[2023-07-08] MEDS ORDERED: Zofran 4 MG/2 ML VIAL IV ONE (09:15)
[2023-07-08] MEDS ORDERED: Zofran 4 MG/2 ML VIAL ONE (09:19)
[2023-07-08] MEDS ORDERED: Hydromorphone 1 mg/ml Injection ONE ×2 (09:20→11:00)
[2023-07-08 09:34] LABS: Absolute Neutrophil Ct (ANC) 4.27 x10^3/uL (1.4-6.9); BASOPHIL % 0.9 % (0.0-0.4); Basophil (Absolute #) 0.07 x10^3/uL (0-0.4); Eosinophil % 5.2 % (0.00-5.0); Eosinophil (Absolute #) 0.42 x10^3/uL (0-0.5); Hematocrit 44.5 % (35-47); Hemoglobin 15.2 g/dL (12.0-16.0); IMMATURE GRAN # 0.02 x10^3u/L (0.00-0.03); IMMATURE GRAN % 0.2 % (0.00-0.4); Lymphocytes % 34.7 % (24.0-44.0); Mean Corpuscular Hemoglobin 31.1 pg (26-32); Mean Corpuscular Hgb Concent. 34.2 g/dL (32-36); Mean Platelet Volume 10.4 fL (7.5-11.0); Monocyte (Absolute #) 0.48 x10^3/uL (0.0-1.3); Platelet Count 233 x10^3/uL (150-450); Red Blood Count 4.89 x10^6/uL (4.1-5.4); Red Cell Distribution Width 12.3 % (11.5-14.0); White Blood Count 8.1 x10^3/uL (4.0-10.5)
[2023-07-08 09:47] LABS: ALBUMIN 3.9 g/dL (3.5-5.0); BILIRUBIN,TOTAL 0.9 mg/dL (0.2-1.3); Calcium 9.1 mg/dL (8.4-10.2); Creatinine 1 0.59 mg/dL (0.52-1.04); EST GLOMERULAR FILTRATION RATE 101.2 ML/MIN; Potassium 3.7 mmol/L (3.5-5.1)
--- NOTE | 2023-07-08 10:08 | XRAY ---
Indication: Hypertension. CVA. Multiple contiguous axial images obtained through the head without contrast. Comparison: None Ventriculosulcal pattern appears symmetric. 8mm focus remote lacunar infarct right external capsule. No acute intracranial hemorrhage, abnormal extra-axial fluid collection, abnormal extra-axial fluid collection, or mass effect. Fourth ventricle is midline without hydrocephalus. Cardenas-white matter differentiation preserved. Bony calvarium intact. Visualized paranasal sinuses and mastoid air cells are clear. Impression: Remote lacunar infarct right external capsule. Remaining CT head without contrast exam is negative.
[2023-07-08] MEDS ORDERED: TRANDATE 20 MG/4 ML SYRINGE IV ONE ×2 (10:53→11:01)
[2023-07-08 10:56] LABS: Appearance Cloudy (Clear); Bacteria None Seen /HPF (None Seen); Bilirubin Negative (Negative); Blood Negative (Negative); Epithelial Cells Few /HPF (None Seen); Glucose, Urine Negative (Negative); Hyaline Casts NONE SEEN /LPF (0-2); Ketones Negative (Negative); Leukocyte Esterase Negative (Negative); Nitrite Negative (Negative); Ph 5.5 (4.6-8.0); Protein,Urine Dip Trace (Negative); RBC 0-2 /HPF (0-5); Specific Gravity 1.025 (1.005-1.030); Urobilinogen 0.2 mg/dL (0.2); WBC 0-2 /HPF (0-5)
[2023-07-08 11:00] LABS: ADD URINE CULTURE? NO (NO)
[2023-07-08 12:05] VITALS: BP 142/88; PULSE 71; RESP 15; O2SAT 93
[2023-07-08] MEDS ORDERED: DIPRIVAN 200 MG/20 ML IV ONE (13:05)
== END 2023-07-08 12:10 | disposition home or self-care (01) ==
LOC: ED 08:55 → EDSTATUS 08:55 → ED 12:10
DX: I10 Essential (primary) hypertension (principal); E11.9 Type 2 diabetes mellitus without complications; Z79.891 Long term (current) use of opiate analgesic; Z79.85 Long-term (current) use of injectable non-insulin antidiabetic drugs; Z79.899 Other long term (current) drug therapy; Z72.0 Tobacco use
CPT/HCPCS: 36000; 36415; 70450; 80053; 81001; 82947; 85025; 93005; 93041; 94760; 96374; 96375; 96376; 99284; J1170; J2405; J2704

== ENCOUNTER → 2023-07-08 | Day surgery (SDC) | payer MEDICARE ==
[~2023-07-08] MED LIST changes: +BUPIVACAINE 0.5% VIAL IJ ONE; +Depo-Medrol 40 MG/ML IM ONE; +Lactated Ringers 1,000 ML IV ONE; +XYLOCAINE-MPF 1% 5ML SDV IJ ONE
--- NOTE | 2023-07-08 14:07 | XRAY ---
Indication: Bilateral hip injection. Intraoperative fluoroscopy provided for 51 seconds. 2 digital spot images submitted for interpretation demonstrates needle tip projecting lateral to the left/right femur necks. Small amount of contrast injected for both needle tip placement.. Correlate with intraoperative findings/report.
--- NOTE | 2023-07-08 15:05 | XRAY ---
51 seconds of fluoroscopy was used in surgery for a bilateral intra-articular hip injection.
== END ==
LOC: SDC-PAIN 12:06
PROVIDERS: ATTEND Psychiatry & Neurology Pain Medicine
DX: M16.0 Bilateral primary osteoarthritis of hip (principal); E10.9 Type 1 diabetes mellitus without complications
CPT/HCPCS: 20610; 73521; 77002; J1030; J2704; Q9966

== ENCOUNTER 2023-08-19 14:04 | Day surgery (SDC) | payer MEDICARE ==
[2023-08-19] MEDS ORDERED: Sodium Chloride 0.9(Preservative Free) 10 ML IJ ONE (14:05)
[2023-08-19] MEDS ORDERED: Decadron 4 MG INJ IV ONE (14:05)
[2023-08-19] MEDS ORDERED: XYLOCAINE-MPF 1% 5ML SDV IJ ONE (14:05)
[2023-08-19] MEDS ORDERED: Hydromorphone 1 mg/ml Injection ONE (16:58)
[2023-08-19] MEDS ORDERED: Lactated Ringers 1,000 ML IV ONE (17:19)
--- NOTE | 2023-08-19 20:07 | XRAY ---
Indication: Lumbar HOMER. Intraoperative fluoroscopy provided for 39 seconds. Single lateral digital spot image submitted for interpretation demonstrates posterior needle tip projecting posterior to lumbosacral junction. Small amount of contrast injected for needle tip placement. Correlate with intraoperative findings/report.
--- NOTE | 2023-08-20 09:16 | XRAY ---
39 seconds of fluoroscopy was used in surgery for a lumbar HOMER.
== END 2023-08-19 17:25 | disposition home or self-care (01) ==
LOC: SDC-PAIN 14:04
PROVIDERS: ATTEND Psychiatry & Neurology Pain Medicine
DX: M54.16 Radiculopathy, lumbar region (principal); E10.9 Type 1 diabetes mellitus without complications
CPT/HCPCS: 62323; 72100; 77003; 82947; J1100; J1170; Q9966

== ENCOUNTER 2024-01-20 07:39 | Day surgery (SDC) | payer MEDICARE ==
[2024-01-20] MEDS ORDERED: Depo-Medrol 40 MG/ML IM ONE (07:40)
[2024-01-20] MEDS ORDERED: XYLOCAINE-MPF 1% 5ML SDV IJ ONE (07:40)
[2024-01-20] MEDS ORDERED: BUPIVACAINE 0.5% VIAL IJ ONE (07:40)
[2024-01-20] MEDS ORDERED: DIPRIVAN 200 MG/20 ML IV ONE (10:07)
[2024-01-20] MEDS ORDERED: TRANDATE 20 MG/4 ML SYRINGE IV ONE (10:50)
--- NOTE | 2024-01-20 11:01 | XRAY ---
Indication: Right L4-S1 RFA. Intraoperative fluoroscopy provided for 20 seconds. 4 digital spot image submitted for interpretation demonstrates posterior needle tips project over the expected right L4-S1 nerve roots. Correlate with intraoperative findings/report.
--- NOTE | 2024-01-20 11:03 | XRAY ---
20 seconds of fluoroscopy was used in surgery for a right L4-S1 RFA.
[2024-01-20] MEDS ORDERED: Lactated Ringers 1,000 ML IV ONE (12:12)
== END 2024-01-20 11:19 | disposition home or self-care (01) ==
LOC: SDC-PAIN 07:39
PROVIDERS: ATTEND Psychiatry & Neurology Pain Medicine
DX: M47.816 Spondylosis without myelopathy or radiculopathy, lumbar region (principal); E11.9 Type 2 diabetes mellitus without complications
CPT/HCPCS: 64635; 64636; 72100; 77002; 82947; J1010; J2704

== ENCOUNTER 2024-02-03 07:34 | Day surgery (SDC) | payer MEDICARE ==
[2024-02-03] MEDS ORDERED: TRANDATE 20 MG/4 ML SYRINGE IV PRN (09:40)
[2024-02-03] MEDS ORDERED: DIPRIVAN 200 MG/20 ML IV ONE (10:44)
[2024-02-03] MEDS ORDERED: Lactated Ringers 1,000 ML IV ONE (11:04)
--- NOTE | 2024-02-03 12:22 | XRAY ---
Indication: Left L4-S1 RFA. Intraoperative fluoroscopy provided for 21 seconds. 4 digital spot images submitted for interpretation demonstrates posterior needle tips projecting over the expected left L4-S1 nerve roots. Correlate with intraoperative findings/report.
--- NOTE | 2024-02-03 12:25 | XRAY ---
21 seconds of fluoroscopy was used in surgery for a left L4-S1 RFA.
== END 2024-02-03 11:15 | disposition home or self-care (01) ==
LOC: SDC-PAIN 07:34
PROVIDERS: ATTEND Psychiatry & Neurology Pain Medicine
DX: M47.816 Spondylosis without myelopathy or radiculopathy, lumbar region (principal); E10.9 Type 1 diabetes mellitus without complications
CPT/HCPCS: 64635; 64636; 72100; 77002; 82947; J2704

== ENCOUNTER 2024-03-16 08:26 | Day surgery (SDC) | payer MEDICARE ==
[2024-03-16] MEDS ORDERED: Depo-Medrol 40 MG/ML IM ONE (08:27)
[2024-03-16] MEDS ORDERED: BUPIVACAINE 0.5% VIAL IJ ONE (08:27)
[2024-03-16] MEDS ORDERED: DIPRIVAN 200 MG/20 ML IV ONE (10:31)
--- NOTE | 2024-03-16 11:52 | XRAY ---
Indication: Bilateral hip and greater trochanter bursa injection. Intraoperative fluoroscopy provided for 55 seconds. 5 digital spot image submitted for interpretation demonstrates needle tips projecting lateral to left/right femur necks and left/right greater trochanters. Small amount of contrast injected for all needle tip placement. Correlate with intraoperative findings/report.
[2024-03-16] MEDS ORDERED: Lactated Ringers 1,000 ML IV ONE (12:50)
--- NOTE | 2024-03-16 13:35 | XRAY ---
55 seconds of fluoroscopy was used in surgery for a bilateral intra-articular hip and greater trochanteric bursa injection.
== END 2024-03-16 11:05 | disposition home or self-care (01) ==
LOC: SDC-PAIN 08:26
PROVIDERS: ATTEND Psychiatry & Neurology Pain Medicine
DX: M16.0 Bilateral primary osteoarthritis of hip (principal); E11.9 Type 2 diabetes mellitus without complications
CPT/HCPCS: 20610; 73522; 77002; 82947; J2704; Q9966

== ENCOUNTER 2024-07-14 09:40 | Day surgery (SDC) | payer MEDICARE ==
[2024-07-14] MEDS ORDERED: BUPIVACAINE 0.5% VIAL IJ ONE (09:41)
[2024-07-14] MEDS ORDERED: Depo-Medrol 40 MG/ML IM ONE (09:41)
[2024-07-14] MEDS ORDERED: DIPRIVAN 200 MG/20 ML IV ONE (11:20)
--- NOTE | 2024-07-14 13:21 | XRAY ---
Indication: Bilateral SI joint injection. Intraoperative fluoroscopy provided for 15 seconds. 2 digital spot image submitted for interpretation demonstrates posterior needle tips projecting over the left and right SI joints. Small amount of contrast injected for needle tip placement. Correlate with intraoperative findings/report.
--- NOTE | 2024-07-14 13:41 | XRAY ---
15 seconds of fluoroscopy was used in surgery for a bilateral sacroiliac joint injection.
== END 2024-07-14 11:48 | disposition home or self-care (01) ==
LOC: SDC-PAIN 09:40
PROVIDERS: ATTEND Psychiatry & Neurology Pain Medicine
DX: M46.1 Sacroiliitis, not elsewhere classified (principal); E11.9 Type 2 diabetes mellitus without complications
CPT/HCPCS: 27096; 72202; 77002; 82947; J2704; Q9966